=== PATIENT | male | born 1975 | race Caucasian/White ===

== ENCOUNTER 2018-03-30 07:56 | Day surgery (SDC) | payer BC, OTHER | END 2018-03-30 13:40 | disposition home or self-care (01) | LOC: GIL 07:56 | DX: K64.8 Other hemorrhoids (principal); K59.00 Constipation, unspecified; E11.9 Type 2 diabetes mellitus without complications; I10 Essential (primary) hypertension; G47.30 Sleep apnea, unspecified; K62.89 Other specified diseases of anus and rectum; E66.9 Obesity, unspecified; Z68.39 Body mass index [BMI] 39.0-39.9, adult; Z80.0 Family history of malignant neoplasm of digestive organs | CPT/HCPCS: 45378; 82962 ==